=== PATIENT | male | born 1930 | race Caucasian/White ===

== ENCOUNTER 2017-06-15 12:16 | Inpatient (IN) | payer OTHER ==
[2017-06-15] MEDS ORDERED: LR 1,000 ML IV SCH (13:05)
[2017-06-15] MEDS ORDERED: cefOXitin SODIUM 2 GM in D5W 100 ML IV ONE (13:05)
[2017-06-15] MEDS ORDERED: BUPIVACAINE 0.5% 30 ML SDV ONE (13:27)
[2017-06-15] MEDS ORDERED: HEPARIN 1000 UNIT/1 ML MDV ONE (13:27)
[2017-06-15] MEDS ORDERED: ceFAZolin 1 GM/5 ML SYR ONE (13:28)
--- NOTE | 2017-06-15 13:58 | PDANEPAE ---
ANE History of Present Illness 87 yo for colostomy takedown ANE Past Medical History - Cardiovascular History Hx Hypertension: No Hx Arrhythmias: No Hx Chest Pain: No Hx Coronary Artery / Peripheral Vascular Disease: No Hx CHF / Valvular Disease: No Hx Palpitations: No Cardiovascular History Comment: fatigue since oct 2016 - Pulmonary History Hx COPD: No Hx Asthma/Reactive Airway Disease: No Hx Recent Upper Respiratory Infection: No Hx Oxygen in Use at Home: No Hx Sleep Apnea: No Sleep Apnea Screening Result - Last Documented: Negative - Neurologic History Hx Cerebrovascular Accident: No Hx Seizures: No Hx Dementia: No - Endocrine History Hx Diabetes: No - Renal History Hx Renal Disorders: No - Liver History Hx Hepatic Disorders: No - Neurological & Psychiatric Hx Hx Neurological and Psychiatric Disorders: No - Cancer History Hx Cancer: Yes Cancer History Comment: skin ca - Congenital Disorder History Hx Congenital Disorders: No - GI History Hx Gastrointestinal Disorders: Yes Gastrointestinal History Comment: colostomy in place. diverticulitis - Other Health History Other Health History: wears bilateral hearing aides. wears glasses - Chronic Pain History Chronic Pain: No - Surgical History Prior Surgeries: colostomy placement 10/2016. cataracts. right rtc repair. right jona ANE Review of Systems - Exercise capacity METS (RN): 3 METS ANE Patient History - Allergies Allergies/Adverse Reactions: No Known Allergies Allergy (Unverified 06/14/17 15:17) - Home Medications Home Medications: NK [No Known Home Meds] 06/14/17 [Last Taken Unknown] - NPO status NPO Since - Liquids (Date): 06/14/17 NPO Since - Liquids (Time): 22:00 NPO Since - Solids (Date): 06/14/17 NPO Since - Solids (Time): 22:00 - Smoking Hx Smoking Status: Former smoker - Family Anes Hx Family Hx Anesthesia Complications: none ANE Labs/Vital Signs - Vital Signs Blood Pressure: 184/96 Heart Rate: 78 Respiratory Rate: 16 O2 Sat (%): 96 Height: 5 ft 8 in Weight: 72.575 kg ANE Physical Exam - Airway Neck exam: FROM Mallampati Score: Class 2 Mouth exam: normal dental/mouth exam - Pulmonary Pulmonary: no respiratory distress - Cardiovascular Cardiovascular: regular rate and rhythym - ASA Status ASA Status: II ANE Anesthesia Plan Anesthesia Plan: general endotracheal anesthesia
[2017-06-15] MEDS ORDERED: LIDOCAINE 1% 2 ML INJ ID PRN (14:04)
[2017-06-15] MEDS ORDERED: LR 1,000 ML IV ONE (14:04)
--- NOTE | 2017-06-15 14:07 | PDHPUP ---
History & Physical Update H&P update statement: This history and physical update is based on an assessment of the patient which was completed after admission or registration (within 24 hours), but prior to the surgery/procedure. H&P update: H&P reviewed & patient examined, no change in patient's condition since H&P completed
[2017-06-15] MEDS ORDERED: fentaNYL 100 MCG/2 ML INJ ONE ×3 (14:22→15:23)
[2017-06-15] MEDS ORDERED: ROCURONIUM 100 MG/10 ML VIAL ONE (14:22)
[2017-06-15] MEDS ORDERED: PROPOFOL/EMULSION 500 MG/50 ML BOTTLE IV ONE ×2 (14:22→16:17)
[2017-06-15] MEDS ORDERED: HYDROmorphONE/DILAUDID 2 MG/ML INJ ONE (15:23)
[2017-06-15] MEDS ORDERED: fentaNYL 100 MCG/2 ML INJ IVP PRN (17:54)
[2017-06-15] MEDS ORDERED: NALOXONE HCL 0.4 MG/ML INJ IVP PRN ×2 (17:54→17:57)
[2017-06-15] MEDS ORDERED: ONDANSETRON 4 MG/2 ML VIAL IVP PRN (17:54)
[2017-06-15] MEDS ORDERED: HYDROmorphONE/DILAUDID 1 MG/ML SYR IVP PRN (17:54)
--- NOTE | 2017-06-15 17:55 | POSTANESTH ---
Post Anesthetic Evaluation Cardiovascular Status: Normal, Stable Respiratory Status: Tx Decrease in SpO2 Level of Consciousness/Mental Status: Alert and Oriented Pain Control: Adequate, Prn Tx Ordered Nausea/Vomiting Control: Adequate, Prn Tx Ordered Complications Possibly Related to Anesthesia: None Noted
[2017-06-15] MEDS ORDERED: OXYCODONE/APAP 5/325 TAB PO PRN (17:57)
[2017-06-15] MEDS ORDERED: HYDROmorphONE/DILAUDID 6 MG/30 ML PCA IV PRN (17:57)
--- NOTE | 2017-06-15 18:02 | POSTOPPROG ---
Post Op Note Date of Operation: 06/15/17 Surgeon: Kai Ramirez Gold Stamper: Yi Lennon Anesthesiologist: Alex Friend Anesthesia: GET(General Endotracheal) Pre-op Diagnosis: presence of colostomy Post-op Diagnosis: same Procedure: ex-laparoscopy, laparotomy, adhesiolysis, colostomy take down Findings: many adhesions, viable bowel, no leak after anastomosis and suturing Inf/Abcess present in the surg proc area at time of surgery?: No EBL: 50-100 Complications: none Drains: Kaushik Garvey, [place] Specimen(s): ostomy and anastomotic rings to pathology
[2017-06-15] MEDS ORDERED: TRANEXAMIC ACID 730 MG in NS 100 ML IV ONE (18:44)
[2017-06-15] MEDS ORDERED: LABETALOL HCL 5 MG/ML 20 ML MDV IVP ONE (18:51)
[2017-06-15] MEDS ORDERED: LABETALOL HCL 5 MG/ML 20 ML MDV ONE (18:53)
[2017-06-15 19:48] LABS: HEMATOCRIT 30.4 % (40.0-51.0); HEMOGLOBIN 9.7 g/dL (13.7-17.5)
[2017-06-16] MEDS: cefOXitin SODIUM 1 GM in D5W 50 ML IV SCH ×4 (01:21→18:02)
[2017-06-16] MEDS: NS W/ 20 KCl/L 1,000 ML IV SCH ×3 (01:57→18:04)
[2017-06-16] MEDS: ACETAMINOPHEN 325 MG TAB PO PRN (06:09)
--- NOTE | 2017-06-16 10:55 | SOAPPROG ---
SOAP Progress Note Assessment/Plan: Assessment/Plan: 87 Y M s/p colostomy take down with extensive adhesiolysis. POD #1. Clear liquids. D/c block. Not using FORMULA MAKER. D/c. Had bad time with percocet in past. Will try dilaudid and tylenol. PT/OT. Continue IVF at current rate. Recheck H&H in am. S: hungry. denies pain. heels hurt after using them to reposition in bed. O: alert, nad mmm no wob, clear anteriorly rrr abd +BS. inc cdi. jennifer in former colostomy site. Drain serosanguinous. 06/16/17 10:52 Objective: Vital Signs Temp Pulse Resp BP Pulse Ox 36.3 C 68 16 106/45 L 96 06/16/17 08:41 06/16/17 08:41 06/16/17 08:41 06/16/17 08:41 06/16/17 08:41 Laboratory Results 06/15/17 19:06 06/15/17 06/16/17 06/17/17 05:59 05:59 05:59 Intake Total 600 Output Total 770 150 Balance -170 -150 ICD10 Worksheet Patient Problems: Problems Problem Status Onset Colostomy in place Acute - ICD10 Problem Qualifiers (1) Colostomy in place
[2017-06-16] MEDS: HYDROmorphONE/DILAUDID 2 MG TAB PO PRN ×2 (11:19→16:25)
[2017-06-17] MEDS: cefOXitin SODIUM 1 GM in D5W 50 ML IV SCH ×5 (00:31→23:20)
[2017-06-17] MEDS: NS W/ 20 KCl/L 1,000 ML IV SCH ×3 (03:40→21:04)
[2017-06-17 05:23] LABS: HEMATOCRIT 32.1 % (40.0-51.0); HEMOGLOBIN 10.3 g/dL (13.7-17.5); MEAN CELL HEMOGLOBIN 31.3 pg (27.9-34.1); MEAN CELL HEMOGLOBIN CONCENTR. 32.1 g/dL (32.4-36.7); MEAN CELL VOLUME 97.6 fL (81.5-99.8); RED BLOOD CELL COUNT 3.29 10^6/uL (4.40-6.38); RED CELL DISTRIBUTION WIDTH 14.5 % (11.5-15.2)
[2017-06-17 05:44] LABS: ANION GAP 7 mEq/L (8-16); CALCIUM 8.7 mg/dL (8.5-10.4); CARBON DIOXIDE 21 mEq/l (22-31); CHLORIDE 111 mEq/L (97-110); CREATININE 1.5 mg/dL (0.7-1.3); GLOMERULAR FILTRATION RATE 44; GLUCOSE 92 mg/dL (70-100); POTASSIUM 5.8 mEq/L (3.5-5.2); SODIUM 139 mEq/L (134-144)
[2017-06-17] MEDS: HYDROmorphONE/DILAUDID 2 MG TAB PO PRN ×2 (08:39→16:12)
[2017-06-17] MEDS: ENOXAPARIN 40 MG/0.4 ML SYR SC SCH (08:39)
--- NOTE | 2017-06-17 12:18 | SOAPPROG ---
SOAP Progress Note Assessment/Plan: Assessment: 87-year-old male status post colostomy takedown. Tolerating clears but has not had any flatus yet, minimal pain/discomfort, patient wants to go home. Physical exam Patient tear, alert Abdomen incisions clean dry and intact no surrounding erythema, abdomen is soft to palpation. Plan: Await further bowel function (flatness) before advancing diet, encouraged ambulation. 06/17/17 12:17 Objective: Vital Signs Temp Pulse Resp BP Pulse Ox 36.7 C 67 16 146/64 H 96 06/17/17 11:22 06/17/17 11:22 06/17/17 11:22 06/17/17 11:22 06/17/17 11:22 Laboratory Results 06/17/17 04:40 06/17/17 04:40 06/16/17 06/17/17 06/18/17 05:59 05:59 05:59 Intake Total 600 2425 Output Total 770 1035 Balance -170 1390 ICD10 Worksheet Patient Problems: Problems Problem Status Onset Colostomy in place Acute
--- NOTE | 2017-06-17 18:06 | SOAPPROG ---
SOAP Progress Note Assessment/Plan: Assessment: DOING WELL STATUS POST LOW ANTERIOR COLECTOMY/URINE OUTPUT OKAY/NO FLATUS OR BM YET /TOLERATING CLEARS Plan: WAIT FOR RETURN OF BOWEL FUNCTION 06/17/17 18:05 Objective: Vital Signs Temp Pulse Resp BP Pulse Ox 36.7 C 69 18 144/62 H 95 06/17/17 15:46 06/17/17 15:46 06/17/17 15:46 06/17/17 15:46 06/17/17 17:00 Laboratory Results 06/17/17 04:40 06/17/17 04:40 06/16/17 06/17/17 06/18/17 05:59 05:59 05:59 Intake Total 600 2425 1450 Output Total 770 1035 555 Balance -170 1390 895 ICD10 Worksheet Patient Problems: Problems Problem Status Onset Colostomy in place Acute
[2017-06-18] MEDS: cefOXitin SODIUM 1 GM in D5W 50 ML IV SCH ×3 (05:06→20:47)
[2017-06-18] MEDS: NS W/ 20 KCl/L 1,000 ML IV SCH (05:29)
[2017-06-18] MEDS: ENOXAPARIN 40 MG/0.4 ML SYR SC SCH (08:47)
--- NOTE | 2017-06-18 15:37 | SOAPPROG ---
SHERITA Progress Note Assessment/Plan: Assessment: DOING WELL STATUS POST LOW ANTERIOR COLECTOMY/URINE OUTPUT OKAY/NO FLATUS OR BM YET /TOLERATING CLEARS Plan: WAIT FOR RETURN OF BOWEL FUNCTION 06/17/17 18:05 06/18/17 15:36 POSTOP DAY 3./STILL DISTENDED WITH NO FLATUS OR BOWEL MOVEMENT BUT COMFORTABLE/ ALSO SOME DIFFICULTY WITH URINATION/ WILL CHECK [address] ABDOMEN/ABDOMEN IS SOFT SLIGHTLY DISTENDED WITH DECREASED BOWEL SOUNDS AND NONTENDER/WOUND IS HEALING WELL/NEGLIGIBLE NANI DRAINAGE IMPRESSION IS SLOW RESOLUTION OF POSTOP ILEUS Objective: Vital Signs Temp Pulse Resp BP Pulse Ox 36.7 C 77 14 133/65 H 93 06/18/17 12:00 06/18/17 12:00 06/18/17 12:00 06/18/17 12:00 06/18/17 12:00 Laboratory Results 06/17/17 04:40 06/17/17 04:40 06/17/17 06/18/17 06/19/17 05:59 05:59 05:59 Intake Total 2425 1550 580 Output Total 1035 1760 750 Balance 1390 -210 -170 ICD10 Worksheet Patient Problems: Problems Problem Status Onset Colostomy in place Acute
[2017-06-18] MEDS: hydrALAZINE 20 MG/ML VIAL IVP PRN (17:49)
[2017-06-18] MEDS: ONDANSETRON 4 MG/2 ML VIAL IVP PRN (20:54)
[2017-06-18] MEDS: ACETAMINOPHEN 325 MG TAB PO PRN (20:54)
[2017-06-19] MEDS: NS W/ 20 KCl/L 1,000 ML IV SCH ×2 (00:25→17:58)
[2017-06-19] MEDS: cefOXitin SODIUM 1 GM in D5W 50 ML IV SCH ×5 (00:25→23:41)
[2017-06-19] MEDS: ONDANSETRON 4 MG/2 ML VIAL IVP PRN ×2 (00:57→23:41)
[2017-06-19] MEDS: ENOXAPARIN 40 MG/0.4 ML SYR SC SCH (09:28)
[2017-06-19 09:30] LABS: % IMMATURE GRANULYOCYTES 0.6 % (0.0-1.1); ABSOLUTE IMMATURE GRANULOCYTES 0.07 10^3/uL (0.00-0.10); ADD DIFF? NO; ATYPICAL LYMPHOCYTE FLAG 0 (0-99); FRAGMENT RBC FLAG 0 (0-99); HEMATOCRIT 35.7 % (40.0-51.0); HEMOGLOBIN 11.5 g/dL (13.7-17.5); LEFT SHIFT FLG 0 (0-99); MEAN CELL HEMOGLOBIN 31.1 pg (27.9-34.1); MEAN CELL HEMOGLOBIN CONCENTR. 32.2 g/dL (32.4-36.7); MEAN CELL VOLUME 96.5 fL (81.5-99.8); MEAN PLATELET VOLUME 8.8 fL (8.7-11.7); PLATELET COUNT 454 10^3/uL (150-400); RED CELL DISTRIBUTION WIDTH 14.4 % (11.5-15.2)
[2017-06-19 09:31] LABS: ADD MORPH? NO; ADD SCAN? NO; LIPEMIA HEMOLYSIS FLAG 80 (0-99); PLATELET CLUMPS FLAG 0 (0-99)
[2017-06-19 09:54] LABS: ANION GAP 11 mEq/L (8-16); CALCIUM 9.1 mg/dL (8.5-10.4); CARBON DIOXIDE 18 mEq/l (22-31); CHLORIDE 111 mEq/L (97-110); CREATININE 1.1 mg/dL (0.7-1.3); GLOMERULAR FILTRATION RATE > 60; GLUCOSE 99 mg/dL (70-100); POTASSIUM 5.2 mEq/L (3.5-5.2); SODIUM 140 mEq/L (134-144)
--- NOTE | 2017-06-19 11:02 | SOAPPROG ---
SOAP Progress Note Assessment/Plan: Assessment: 79-year-old male postoperative day 4 status post colostomy takedown To a abdomen yesterday showed ileus versus small-bowel obstruction, no other concerning findings at this time. Overnight, the patient did have some nausea which was well controlled. Denies having any nausea this morning. On exam, his incision is clean dry and intact, the [place] in the left lower quadrant is draining appropriately. The NANI is serosanguineous. He does have some minimal bowel sounds and some mild abdominal distention. We will plan to keep him on sips and chips until he has more robust bowel function. Clinically he looks well given his normal vital signs I am concerned given his imaging findings. Will continue to monitor closely Plan: 06/19/17 11:01 Subjective: Overall doing well, does have some abdominal distention but denies pain. Minimal flatus. wants the [place] out Objective: Vital Signs Temp Pulse Resp BP Pulse Ox 36.7 C 85 18 166/84 H 91 L 06/19/17 07:59 06/19/17 07:59 06/19/17 07:59 06/19/17 07:59 06/19/17 07:59 Laboratory Results 06/19/17 09:23 06/19/17 09:23 06/18/17 06/19/17 06/20/17 05:59 05:59 05:59 Intake Total 1550 4277 Output Total 1760 2360 Balance -210 1917 ICD10 Worksheet Patient Problems: Problems Problem Status Onset Colostomy in place Acute
[2017-06-19] MEDS: ACETAMINOPHEN 325 MG TAB PO PRN (22:40)
[2017-06-20] MEDS: NS W/ 20 KCl/L 1,000 ML IV SCH (03:30)
[2017-06-20] MEDS: cefOXitin SODIUM 1 GM in D5W 50 ML IV SCH ×4 (06:00→23:51)
[2017-06-20] MEDS: ENOXAPARIN 40 MG/0.4 ML SYR SC SCH (08:28)
[2017-06-20] MEDS: hydrALAZINE 20 MG/ML VIAL IVP PRN (08:38)
[2017-06-20] MEDS ORDERED: CEPACOL LOZENGE PO PRN (09:23)
--- NOTE | 2017-06-20 09:23 | SOAPPROG ---
SOAP Progress Note Assessment/Plan: Assessment: 79-year-old male postoperative day 4 status post colostomy takedown Overnight still seems to have issues with vomiting, unclear what is precipitating this but the patient denies having any nausea. This morning he states that he feels well, objectively his abdominal distention is improved and he has good bowel sounds and continues to pass flatus. I have scheduled the patient on scheduled Reglan to help with his nausea which seems to be worse at night. Have also advance his diet back to clears. We will see how the patient does but clinically appears to be improving. Plan: 06/19/17 11:01 06/20/17 09:22 Subjective: Feels better this morning, continues to pass gas abdominal distention improved Objective: Vital Signs Temp Pulse Resp BP Pulse Ox 36.7 C 82 16 187/71 H 96 06/20/17 08:00 06/20/17 08:00 06/20/17 08:00 06/20/17 08:00 06/20/17 08:00 Laboratory Results 06/19/17 09:23 06/19/17 09:23 06/19/17 06/20/17 06/21/17 05:59 05:59 05:59 Intake Total 7340 0361 Output Total 2360 1130 200 Balance 1917 1551 -200 ICD10 Worksheet Patient Problems: Problems Problem Status Onset Colostomy in place Acute
[2017-06-20] MEDS: METOCLOPRAMIDE 10 MG/2 ML VIAL IVP SCH ×3 (12:50→23:51)
[2017-06-21] MEDS: HYDROmorphONE/DILAUDID 2 MG TAB PO PRN (03:25)
[2017-06-21] MEDS: METOCLOPRAMIDE 10 MG/2 ML VIAL IVP SCH ×4 (05:46→23:45)
[2017-06-21] MEDS: cefOXitin SODIUM 1 GM in D5W 50 ML IV SCH ×2 (05:46→12:59)
[2017-06-21] MEDS: NS W/ 20 KCl/L 1,000 ML IV SCH (05:51)
[2017-06-21] MEDS: ENOXAPARIN 40 MG/0.4 ML SYR SC SCH (08:55)
--- NOTE | 2017-06-21 12:51 | SOAPPROG ---
SHERITA Progress Note Assessment/Plan: Assessment: DOING WELL STATUS POST LOW ANTERIOR COLECTOMY/URINE OUTPUT OKAY/NO FLATUS OR BM YET /TOLERATING CLEARS Plan: WAIT FOR RETURN OF BOWEL FUNCTION 06/17/17 18:05 06/18/17 15:36 POSTOP DAY 3./STILL DISTENDED WITH NO FLATUS OR BOWEL MOVEMENT BUT COMFORTABLE/ ALSO SOME DIFFICULTY WITH URINATION/ WILL CHECK [address] ABDOMEN/ABDOMEN IS SOFT SLIGHTLY DISTENDED WITH DECREASED BOWEL SOUNDS AND NONTENDER/WOUND IS HEALING WELL/NEGLIGIBLE NANI DRAINAGE IMPRESSION IS SLOW RESOLUTION OF POSTOP ILEUS 06/21/17 12:49 Status post colostomy closure/doing reasonably well/no BM yet but some flatus/ wound okay/abdomen soft and nontender/some bowel sounds/colostomy site okay/ afebrile Ambulating well with no particular difficulties/afebrile/ hopefully home soon 1 having better GI function/negligible drainage from NANI Objective: Vital Signs Temp Pulse Resp BP Pulse Ox 36.8 C 77 18 162/81 H 91 L 06/21/17 07:29 06/21/17 07:29 06/21/17 07:29 06/21/17 08:56 06/21/17 11:48 Laboratory Results 06/19/17 09:23 06/19/17 09:23 06/20/17 06/21/17 06/22/17 05:59 05:59 05:59 Intake Total 8561 8276 Output Total 1130 1185 Balance 1551 511 ICD10 Worksheet Patient Problems: Problems Problem Status Onset Colostomy in place Acute
[2017-06-21] MEDS: DOCUSATE SODIUM 100 MG CAP PO SCH (23:50)
[2017-06-22] MEDS: METOCLOPRAMIDE 10 MG/2 ML VIAL IVP SCH ×3 (06:05→17:56)
[2017-06-22] MEDS: DOCUSATE SODIUM 100 MG CAP PO SCH ×2 (08:32→22:28)
[2017-06-22] MEDS: hydrALAZINE 20 MG/ML VIAL IVP PRN (08:32)
[2017-06-22] MEDS: ENOXAPARIN 40 MG/0.4 ML SYR SC SCH (08:32)
--- NOTE | 2017-06-22 15:26 | SOAPPROG ---
SHERITA Progress Note Assessment/Plan: Assessment/Plan: 87 Y M s/p colostomy take down with extensive adhesiolysis. Regular diet. Colace/MOM. Continue NANI until d/c'ed. HBP. Added low dose norvasc. May need to increase or change-monitor. Dispo: possibly home tomorrow. S: eating, but not excited about our food. passing more gas. no more n/v. No BM yet. O: alert, nad mmm no wob, clear anteriorly rrr abd +BS. inc cdi. Drain serosanguinous. 06/22/17 15:24 Objective: Vital Signs Temp Pulse Resp BP Pulse Ox 37.3 C 85 28 H 184/86 H 90 L 06/22/17 07:50 06/22/17 07:50 06/22/17 07:50 06/22/17 07:50 06/22/17 07:50 Laboratory Results 06/19/17 09:23 06/19/17 09:23 06/21/17 06/22/17 06/23/17 05:59 05:59 05:59 Intake Total 1696 350 100 Output Total 1185 530 125 Balance 511 -180 -25 ICD10 Worksheet Patient Problems: Problems Problem Status Onset Colostomy in place Acute - ICD10 Problem Qualifiers (1) Colostomy in place
[2017-06-22] MEDS: MAGNESIUM HYDROXIDE 30 ML UDCUP PO PRN (16:44)
[2017-06-22 23:09] VITALS: O2SAT 93
[2017-06-23] MEDS: METOCLOPRAMIDE 10 MG/2 ML VIAL IVP SCH ×2 (01:50→06:02)
[2017-06-23 05:50] LABS: HEMOGLOBIN 10.8 g/dL (13.7-17.5); LIPEMIA HEMOLYSIS FLAG 80 (0-99); MEAN CELL HEMOGLOBIN 30.7 pg (27.9-34.1); MEAN CELL HEMOGLOBIN CONCENTR. 32.7 g/dL (32.4-36.7); MEAN CELL VOLUME 93.8 fL (81.5-99.8); PLATELET COUNT 490 10^3/uL (150-400); RED BLOOD CELL COUNT 3.52 10^6/uL (4.40-6.38); RED CELL DISTRIBUTION WIDTH 14.5 % (11.5-15.2)
[2017-06-23 08:03] VITALS: BP 182/88; PULSE 84; RESP 16; TEMP 98.2
[2017-06-23] MEDS: MAGNESIUM HYDROXIDE 30 ML UDCUP PO PRN (08:24)
[2017-06-23] MEDS: DOCUSATE SODIUM 100 MG CAP PO SCH (08:24)
[2017-06-23] MEDS ORDERED: POLYETHYLENE GLYCOL 3350 17 GM PKT PO PRN (08:49)
--- NOTE | 2017-06-23 09:39 | SOAPPROG ---
SHERITA Progress Note Assessment/Plan: Assessment/Plan: 87 Y M s/p colostomy take down with extensive adhesiolysis. Refusing HBP meds. Says he runs about 125/70 at home. Says it is high while in hospitals bc he gets frustrated/white coat. +BM. D/c drain. Doing well. D/c to home today. Refuses SNF. Has lots of help at home with and daughter. S: +BM. no pain. eager to go home. O: alert, nad mmm no wob, clear anteriorly rrr abd +BS. inc cdi. 06/23/17 09:34 Objective: Vital Signs Temp Pulse Resp BP Pulse Ox 36.8 C 84 16 182/88 H 93 06/23/17 08:02 06/23/17 08:02 06/23/17 08:02 06/23/17 08:02 06/23/17 08:02 Laboratory Results 06/23/17 04:25 06/19/17 09:23 06/22/17 06/23/17 06/24/17 05:59 05:59 05:59 Intake Total 350 100 350 Output Total 530 225 155 Balance -180 -125 195 ICD10 Worksheet Patient Problems: Problems Problem Status Onset Colostomy in place Acute - ICD10 Problem Qualifiers (1) Colostomy in place
--- NOTE | 2017-06-23 09:51 | PDIAF ---
- Diagnosis Diagnosis: s/p colostomy takedown Code Status: Full Code - Medication Management Discharge Medications: Medications to Continue on Transfer Acetaminophen [Tylenol 325mg (*)] 650 mg PO Q6 PRN #0 tab 06/23/17 [Last Taken Unknown] Docusate Sodium [Colace 100 MG (*)] 100 mg PO BID #0 cap 06/23/17 [Last Taken Unknown] Polyethylene Glycol 3350 [Miralax 17 gm (*)] 17 gm PO DAILY PRN #0 pkt 06/23/17 [Last Taken Unknown] Discharge Medications: Refer to the Discharge Home Medication list for PRN reason. PICC Care - Routine: N/A - Orders Services needed: Home Care, Registered Nurse, Physical Therapy, Occupational Therapy Home Care Face to Face: I certify that this patient was under my care and that I had the required [id number] encounter meeting the encounter requirements on the discharge day. My findings support the fact that the patient is homebound as defined in CMS Chapter 7 Medicare Benefits Manual 30.1.1, The condition of the patient is such that there exists a normal inability to leave home and consequently, leaving home would require a considerable and taxing effort. Diet Recommendation: no restrictions on diet Diet Texture: Regular Texture Diet Sutures/Agency Site: Leave in place. To be removed in office. Former drain site will need either gauze or a band aid to cover until healed. Activity/Weight Bearing Restrictions: No lifting greater than 15 lbs. - Follow Up Care Current Providers and Referrals: Kai Ramirez MD [Medical Doctor] - follow up in 1 week Isa Olmstead DO [Primary Care Provider] - (Please follow up with your PCP. Your blood pressure has been very high in the hospital. )
[2017-06-23] MEDS: ENOXAPARIN 40 MG/0.4 ML SYR SC SCH (11:24)
== END 2017-06-23 12:30 | disposition home or self-care (01) | DRG 336 ==
LOC: F3E 12:16
PROVIDERS: ADMIT Surgery; ATTEND Surgery
PROC: 0DJD4ZZ Inspection of Lower Intestinal Tract, Percutaneous Endoscopic Approach (ICD-10-PCS; principal; 2017-06-15 15:00)
PROC: 0DSN0ZZ Reposition Sigmoid Colon, Open Approach (ICD-10-PCS; principal; 2017-06-15 15:00)
PROC: 0DNN0ZZ Release Sigmoid Colon, Open Approach (ICD-10-PCS; principal; 2017-06-15 15:00)
DX: Z43.3 Encounter for attention to colostomy (principal); K56.7 Ileus, unspecified; K66.0 Peritoneal adhesions (postprocedural) (postinfection); Z53.31 Laparoscopic surgical procedure converted to open procedure
CPT/HCPCS: 97110-GO; 97116-GP; 97161-GP; 97166-GO; 97530-GO; 97530-GP; 97535-GO; G8978-GP-CI; G8979-GP-CI; G8987-GO-CK; G8988-GO-CI; J0360; J0694; J0697; J1170; J1650; J2405; J2704; J2765; J3010; J3490

== ENCOUNTER → 2018-05-02 | Outpatient (CLI) | payer OTHER | LOC: CIMAGING 16:58 | PROVIDERS: ATTEND Internal Medicine | DX: J90 Pleural effusion, not elsewhere classified (principal); R53.83 Other fatigue; Z87.81 Personal history of (healed) traumatic fracture | CPT/HCPCS: 71100-PO ==